=== PATIENT | female | born 1985 | race Caucasian/White ===

== ENCOUNTER 2020-01-12 16:09 | Outpatient (CLI) | payer OTHER, SELFPAY ==
--- NOTE | ~2020-01-12 | XR_ITS ---
EXAMINATION:XR cervical spine 4-5V DATE: 01/12/2020 16:55 INDICATION: Neck pain. Limited range of motion. TECHNIQUE: AP, lateral, lateral swimmers and odontoid views of the cervical spine are provided. COMPARISON: None FINDINGS: Alignment is normal. Odontoid is intact. Normal atlantoaxial interval. Vertebral body heights are no rmal. Disc spaces are normal. Mild uncovertebral osteoarthritis bilaterally at C5-C6 and on the right at C4-C5. There is also mild facet osteoarthritis at C2-C3 through C6-C7 and mild to moderate at C7- T1. Prevertebral soft tissues are normal. Visualized apices of the lungs are clear. IMPRESSION: 1. 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 Reviewed, dictated and finalized at location . [employer] [employer] IMPRESSION: 1. Mild polyarticular osteoarthritis involving the cervical facet joints and fe w lower cervical uncovertebral joints.
== END 2020-01-12 16:10 | disposition home or self-care (01) ==
PROVIDERS: PCP Family Medicine; Visit Provider Nurse Practitioner
DX: M47.813 Spondylosis without myelopathy or radiculopathy, cervicothoracic region (principal)
CPT/HCPCS: 72050